=== PATIENT | female | born 1955 | race Caucasian/White ===

== ENCOUNTER 2023-01-10 20:53 | Outpatient (CLI) | payer MEDICARE, OTHER, SELFPAY | END 2023-01-10 20:54 | disposition home or self-care (01) | LOC: AMB 01-21 04:31 | PROVIDERS: Visit Provider Family Medicine | DX: R55 Syncope and collapse (principal) | CPT/HCPCS: A0425; A0427 ==

== ENCOUNTER 2023-04-04 17:40 | Outpatient (CLI) | payer MEDICARE, OTHER, SELFPAY | END 2023-04-04 17:41 | disposition home or self-care (01) | LOC: AMB 04-08 09:59 | PROVIDERS: Visit Provider Family Medicine | DX: R07.89 Other chest pain (principal) | CPT/HCPCS: A0425; A0427 ==

== ENCOUNTER 2023-04-04 17:53 | Emergency (ER) | payer MEDICARE, OTHER, SELFPAY ==
[2023-04-04 18:00] VITALS: BP 139/81; PULSE 106; RESP 22; TEMP 37.3; O2SAT 94; BMI 28.0
--- NOTE | 2023-04-04 18:18 | ED.CHESTPAIN ---
HPI - Chest Pain General Time Seen by Provider: 18:18 Date Seen: 04/04/23 Chief Complaint: Chest Pain Stated Complaint: chest pain/discomfort Time Seen by Provider: 04/04/23 18:04 Source: patient, family, RN notes reviewed and old records reviewed Mode of arrival: ambulatory Limitations: no limitations History of Present Illness HPI narrative: 68-year-old female who presents today with chest pain. This is been going on today. She also has nausea without vomiting. Has a cough, also complains of some chest pain. Denies lower extremity swelling. She comes from a correction. Denies diarrhea, urinary symptoms, abdominal pain. Related Data Home Medications Medication Instructions Recorded Confirmed acetaminophen 500 mg tablet (Pain 1,000 mg PO BID 01/10/23 01/10/23 Reliever Extra Strength (acetaminophen)) clozapine 100 mg tablet 600 mg PO HS 01/10/23 01/10/23 lurasidone 40 mg tablet 40 mg PO DAILY 01/10/23 01/10/23 omeprazole 20 mg capsule,delayed 20 mg PO BID 01/10/23 01/10/23 release oxybutynin chloride 10 mg 10 mg PO DAILY 01/10/23 01/10/23 tablet,extended release 24 hr sennosides 8.6 mg tablet (senna) 17.2 mg PO BID 01/10/23 01/10/23 albuterol sulfate 90 mcg/actuation 2 puff inhalation Q4H PRN 01/11/23 01/11/23 aerosol inhaler (Ventolin HFA) calcium carbonate 200 mg calcium 200 mg PO QID PRN 01/11/23 01/11/23 (500 mg) chewable tablet (Gil-Gest Antacid) cetirizine 10 mg tablet 10 mg PO DAILY 01/11/23 01/11/23 clonazepam 1 mg tablet 1 mg PO HS 01/11/23 01/11/23 diphenhydramine HCl 25 mg capsule 25 mg PO HS 01/11/23 01/11/23 (Banophen) docusate sodium 100 mg capsule 100 mg PO BID 01/11/23 01/11/23 famotidine 20 mg tablet 20 mg PO BID 01/11/23 01/11/23 fluticasone furoate 100 1 ea inhalation DAILY 01/11/23 01/11/23 mcg-vilanterol 25 mcg/dose inhalation powder (Breo Ellipta) Previous Rx's Medication Instructions Recorded doxycycline hyclate 100 mg capsule 100 mg PO BID #10 caps 04/04/23 prednisone 20 mg tablet 20 mg PO DAILY #5 tabs 04/04/23 Allergies Allergy/AdvReac Type Severity Reaction Status Date / Time No Known Drug Allergies Allergy Verified 01/10/23 22:30 [facility] Medical History (Updated 04/04/23 @ 21:48 by Antony Page MD) Gastroesophageal reflux disease ?K21.9 - Gastro-esophageal reflux disease without esophagitis (ICD-10) Schizoaffective disorder ?F25.9 - Schizoaffective disorder, unspecified (ICD-10) Social History (Updated 01/11/23 @ 01:02 by Thong Cardoso MD) Narrative: 67-year-old female resident of [facility]. Unable to give any significant history. Prior to moving to [place] about 12 years ago she was living with her parents but having significant psychiatric problems. Was placed in [facility]. Smoke cigarettes. Probably had a history ethanol abuse at some point in the past. Smoking Status: Current every day smoker How often do you have a drink containing alcohol: never AUDIT-C Alcohol total score: 0 Non-prescribed substance use: denies use Exam Narrative Exam Narrative: General: Well-developed and well-nourished, no acute distress Head: Atraumatic and normocephalic Eyes: Pupils are equal reactive, extraocular motions intact, conjunctiva clear ENT: External nose and ears are normal, posterior pharynx without erythema or exudate Neck: No midline cervical tenderness, full spontaneous range of motion the neck, trachea midline, no adenopathy Heart: Tachycardic but regular Lungs: Trace expiratory wheezes throughout Abdomen: Soft, nontender, nondistended with active bowel sounds Musculoskeletal: No tenderness, deformity, or edema Neurologic: Awake, alert, and oriented x3, no gross focal neurologic deficits, cranial nerves intact as tested Psych: Mood and affect are appropriate Skin: No rashes Const Vital Signs, click to edit/add: Vital Signs - 24 hr 04/04/23 18:00 04/04/23 20:20 04/04/23 20:32 Temperature 99.1 F Pulse Rate 103 H 104 H Pulse Rate [Pulse Oximeter] 106 H Respiratory Rate 22 18 18 Blood Pressure 146/76 H 136/69 Blood Pressure [Right Upper Arm] 139/81 Pulse Oximetry 94 95 95 Oxygen Delivery Method Room Air 04/04/23 21:01 04/04/23 21:07 04/04/23 21:32 Temperature 99.1 F Pulse Rate 102 H 103 H Pulse Rate [Pulse Oximeter] Respiratory Rate 18 18 Blood Pressure 144/71 H 128/71 Blood Pressure [Right Upper Arm] Pulse Oximetry 96 96 Oxygen Delivery Method Course Course Hospital Course: Patient seen examined, prior records reviewed. Patient presents today with left-sided chest pain. On exam she is tachycardic with some expiratory wheezes, chest wall tenderness which reproduces symptoms. No lower extremity edema, mild diffuse abdominal tenderness with no focal tenderness. Labs, x-ray, fluids, nebulizer treatment are ordered. Reevaluation(s) Time of Reevaluation #1: 19:41 Reevaluation #1: Labs independently interpreted by me with leukocytosis, normal hemoglobin. D-dimer is negative, basic panel with hyponatremia, magnesium is normal, BNP is normal. Chest x-ray independently interpreted by me is negative. Given leukocytosis and chest pain, CT scan of the chest is ordered, patient is also complaining of some abdominal pain so extent to the abdomen pelvis given unreliable historian and leukocytosis. Time of Reevaluation #2: 20:35 Reevaluation #2: Labs independently interpreted by me with normal troponin. CT scan of the chest independently interpreted by me with some hazy ground-glass opacities, some atelectasis, no definite acute infiltrate. CT scan of the abdomen pelvis independently interpreted by me demonstrates bladder enlargement with bilateral hydronephrosis consistent with chronic outlet obstruction. Urinalysis today is not consistent with infection. Given wheezing on exam, leukocytosis, tachycardia, in findings on CT scan, patient was started on antibiotics dark for possible community-acquired pneumonia. Time of Reevaluation #3: 21:47 Reevaluation #3: Patient recheck, patient is stable for discharge with outpatient follow-up. Vital Signs Vital signs: Initial Vital Signs Temperature 99.1 F 04/04/23 18:00 Temperature Source Temporal Artery Scan 04/04/23 18:00 Pulse Rate 106 H 04/04/23 18:00 Pulse Rhythm Regular 04/04/23 18:00 Respiratory Rate 22 04/04/23 18:00 Blood Pressure 139/81 04/04/23 18:00 Blood Pressure Mean 100 04/04/23 18:00 Blood Pressure Position Semi-Fowlers 04/04/23 18:00 Pulse Oximetry 94 04/04/23 18:00 Oxygen Delivery Method Room Air 04/04/23 18:00 Vital Signs Temperature 99.1 F 04/04/23 18:00 Pulse Rate 106 H 04/04/23 18:00 Respiratory Rate 22 04/04/23 18:00 Blood Pressure 139/81 04/04/23 18:00 Pulse Oximetry 94 04/04/23 18:00 Oxygen Delivery Method Room Air 04/04/23 18:00 Temperature 99.1 F 04/04/23 21:07 Pulse Rate 103 H 04/04/23 21:32 Respiratory Rate 18 04/04/23 21:32 Blood Pressure 128/71 04/04/23 21:32 Pulse Oximetry 96 04/04/23 21:32 Oxygen Delivery Method Room Air 04/04/23 18:00 MDM - Chest Pain Lab Data Labs: Lab Results 04/04/23 04/04/23 Range/Units 19:00 19:30 WBC 16.05 H (4.50-11.00) K/uL RBC 4.38 (4.00-5.20) m/uL Hgb 11.9 L (12.0-16.0) gm/dL Hct 36.3 (33.0-51.0) % MCV 83 (80-100) fL MCH 27 (26-34) pg MCHC 33 (32-36) gm/dL RDW Coeff of Jennifer 16.6 H (11.5-15.5) % Plt Count 418 (140-440) K/uL Neut % (Auto) 76.4 H (42.0-72.0) % Lymph % (Auto) 14.1 L (20-44) % [place]duff[place] % (Auto) 9.2 (0.0-11.0) % Eos % (Auto) 0.1 (0.0-7.0) % Baso % (Auto) 0.1 (0.0-3.0) % Neut # (Auto) 12.30 H (1.7-7.0) K/uL Lymph # (Auto) 2.30 (0.90-2.90) K/uL Mcduffie # (Auto) 1.50 H (0.00-0.90) K/UL Eos # (Auto) 0.00 (0.00-0.50) K/uL Baso # (Auto) 0.00 (0.00-0.30) K/uL Abs Immat Gran (auto) 0.00 (0.00-0.30) K/uL Imm/Tot Granulo (auto) 0.1 % D-Dimer Quant (PE/DVT) 0.42 (0.00-0.50) ug/ml Sodium 125 L (135-149) mmol/L Potassium 3.8 (3.6-5.1) mmol/L Chloride 93 L (96-114) mmol/L Carbon Dioxide 19 L (20-32) mmol/L BUN 7 (7-30) mg/dL Creatinine 0.5 (0.5-1.5) mg/dL Estimated Creat Clear 49.12 Estimated GFR 103 ml/min Glucose 115 (60-115) mg/dL Calcium 9.1 (8.4-10.6) mg/dL Magnesium 1.6 (1.5-2.6) mg/dL NT-Pro-B Natriuret Pep 28 pg/mL Urine Color Yellow (Yellow) Urine Appearance Clear (Clear) Urine pH 7.0 (5.0-8.5) Ur Specific [place] 1.010 (1.000-1.030) Urine Protein Negative (Negative) Urine Glucose (UA) Negative (Negative) Urine Ketones Negative (Negative) Urine Blood Negative (Negative) Urine Nitrite Negative (Negative) Urine Bilirubin Negative (Negative) Urine Urobilinogen 0.2 (0.2-1.0) Ur Leukocyte Esterase Negative (Negative) Urine RBC 0-2 (0-2) Urine WBC 0-2 (0-5) Ur Squamous Epith Cells None (None-Few) Urine Bacteria None (None) SARS-CoV-2 (PCR) Negative SARS-CoV-2 (Negative) Influenza Type A (PCR) Negative PCR FLU A (Negative) Influenza Type B (PCR) Negative PCR FLU B (Negative) POC Troponin I 0.00 L (0.01-0.04) ng/ml ECG Data Attestation: I personally reviewed and interpreted this ECG as follows: ECG interpretation date: 04/04/23 ECG interpretation time: 18:22 Prior ECG tracings: not available for review Interpretation: Performed at 452 p.m. demonstrates sinus tachycardia rate 108, no acute ischemic changes, normal intervals, normal axis, MT 120, QTC 431. No prior for comparison. Discharge Plan Discharge Clinical Impression: Acute bronchitis, Acute hyponatremia Patient Disposition: Home, Self-Care Condition: Stable Instructions: Acute Bronchitis (ED) Additional Instructions: Take antibiotics as prescribed Use inhaler as prescribed Follow-up with your primary care doctor this week Discharge Diet: Regular Prescriptions: New doxycycline hyclate 100 mg capsule 100 mg PO BID Qty: 10 0RF prednisone 20 mg tablet 20 mg PO DAILY Qty: 5 0RF No Action clozapine 100 mg tablet 600 mg PO HS acetaminophen [Pain Reliever ES(acetaminophn)] 500 mg tablet 1,000 mg PO BID sennosides [senna] 8.6 mg tablet 17.2 mg PO BID oxybutynin chloride 10 mg tablet extended release 24hr 10 mg PO DAILY omeprazole 20 mg capsule,delayed release(DR/EC) 20 mg PO BID lurasidone 40 mg tablet 40 mg PO DAILY albuterol sulfate [Ventolin HFA] 90 mcg/actuation HFA aerosol inhaler 2 puff inhalation Q4H PRN calcium carbonate [Gil-Gest Antacid] 200 mg calcium (500 mg) tablet,chewable 200 mg PO QID PRN Patient Comments: HEARTBURN cetirizine 10 mg tablet 10 mg PO DAILY clonazepam 1 mg tablet 1 mg PO HS diphenhydramine HCl [Banophen] 25 mg capsule 25 mg PO HS famotidine 20 mg tablet 20 mg PO BID docusate sodium 100 mg capsule 100 mg PO BID fluticasone furoate-vilanterol [Breo Ellipta] 100-25 mcg/dose blister with device 1 ea inhalation DAILY Follow Up/Referrals: Provider,Not a Local [Primary Care Provider] - Stand Alone Forms: [employer] Info Instructions
--- NOTE | 2023-04-04 18:20 | CRLHL7_ITS ---
For Patients: As a result of the Century Cures Act, medical imaging exams and procedure reports are released immediately into your electronic medical record. You may view this report before your referring provider. If you have questions, please contact your health care provider. INDICATION: Chest pain TECHNIQUE: Chest 1 view COMPARISON: 01/10/2023 FINDINGS: Cardiovascular and mediastinum: Heart size and vasculature are normal in caliber and appearance. Lungs and pleural spaces: Lungs are clear. No sign of infiltrate or mass. No sign of pleural effusion. No pneumothorax. Bones and soft tissues: Degenerative changes noted. IMPRESSION: No acute findings. Dictated by Zachary August MD @ 04/04/2023 7:03:18 PM (Electronically Signed)
[2023-04-04 19:14] LABS: Basophils Percent Auto 0.1 % (0.0-3.0); Eosinophils Percent Auto 0.1 % (0.0-7.0); Hematocrit 36.3 % (33.0-51.0); Hemoglobin* 11.9 gm/dL (12.0-16.0); Immature Granulocytes Pct Auto 0.1 %; Lymphocytes Percent Auto 14.1 % (20-44); Mean Corpuscular HGB Conc 33 gm/dL (32-36); Mean Corpuscular Hemoglobin 27 pg (26-34); Mean Corpuscular Volume 83 fL (80-100); Monocytes Percent Auto 9.2 % (0.0-11.0); Neutrophils Percent Auto 76.4 % (42.0-72.0); Platelet Count* 418 K/uL (140-440); RDW Coefficient of Variation % 16.6 % (11.5-15.5); Red Blood Count 4.38 m/uL (4.00-5.20); White Blood Count* 16.05 K/uL (4.50-11.00)
[2023-04-04 19:15] LABS: Slide Review Reflex No
[2023-04-04 19:25] LABS: Chloride* 93 mmol/L (96-114); Potassium* 3.8 mmol/L (3.6-5.1); Sodium* 125 mmol/L (135-149)
[2023-04-04 19:28] LABS: Carbon Dioxide* 19 mmol/L (20-32); Creatinine* 0.5 mg/dL (0.5-1.5); Est. Creatinine Clearance* 49.12; Estimated Glomerular Filt Rate 103 ml/min
[2023-04-04 19:29] LABS: Blood Urea Nitrogen* 7 mg/dL (7-30); Calcium* 9.1 mg/dL (8.4-10.6); Glucose* 115 mg/dL (60-115); Magnesium* 1.6 mg/dL (1.5-2.6)
[2023-04-04] MEDS: IPRAT-ALBUT 0.5-2.5 MG/3 ML NEB 1 NEB IH (19:29)
[2023-04-04] MEDS: 0.9 % SODIUM CHLORIDE 1000 ml 1,000 ML IV (19:29)
[2023-04-04] MEDS: ACETAMINOPHEN 500 MG TABLET 1000 MG PO (19:29)
[2023-04-04 19:30] LABS: D Dimer Quantitative* 0.42 ug/ml (0.00-0.50)
[2023-04-04 19:39] LABS: NT Pro B Type NatriureticPept* 28 pg/mL
--- NOTE | 2023-04-04 19:44 | CRLHL7_ITS ---
For Patients: As a result of the Century Cures Act, medical imaging exams and procedure reports are released immediately into your electronic medical record. You may view this report before your referring provider. If you have questions, please contact your health care provider. INDICATION: Thoraco abdominal pain, tachycardia, leukocytosis TECHNIQUE: CT chest, abdomen and pelvis acquired with 82 cc Isovue 370 IV contrast. COMPARISON: None FINDINGS: Chest: Cardiovascular structures: Heart size is normal. Thoracic aorta and main pulmonary artery are normal in caliber. Mediastinum and dimas: No mass or adenopathy. Small hiatal hernia. Lungs: Clear. Pleura and pericardium: No effusions. Chest wall and axilla: No mass or adenopathy. Bones: Unremarkable for age. Abdomen and Pelvis: Liver: Unremarkable. Spleen: Unremarkable. Pancreas: 9 mm cyst in the pancreatic tail. Gallbladder and bile ducts: Unremarkable. Adrenal glands: Unremarkable. Kidneys: Mild pelvicaliectasis likely due to significant distention of the urinary bladder. GI tract: Unremarkable. Appendix is normal. Vascular structures: Mild aortoiliac calcifications. Lymph nodes: Unremarkable. Miscellaneous: Unremarkable. No free air or significant free fluid. Pelvic Organs: Distended urinary bladder. Bones: Unremarkable for age. IMPRESSION: No etiology seen to explain leukocytosis. No acute abnormality within the chest, abdomen, or pelvis. 9 mm pancreatic cyst. Recommend follow-up pancreatic CT or MRI in 2 years. Distended urinary bladder causes mild bilateral pelvicaliectasis. Please note that all CT scans at this facility use dose modulation, iterative reconstruction, and/or weight-based dosing when appropriate to reduce radiation dose to as low as reasonably achievable. Dictated by Suma Guevara MD @ 04/04/2023 9:40:19 PM (Electronically Signed)
[2023-04-04 19:50] LABS: Appearance Urine Clear (Clear); Bilirubin Urine Negative (Negative); Blood Urine Negative (Negative); Color Urine Yellow (Yellow); Glucose Urine Negative (Negative); Ketones Urine Negative (Negative); Leukocyte Esterase Urine Negative (Negative); Nitrite Urine Negative (Negative); Protein Urine Negative (Negative); Urobilinogen Urine 0.2 (0.2-1.0)
[2023-04-04 19:53] LABS: RBC Urine 0-2 (0-2); WBC Urine 0-2 (0-5)
[2023-04-04 20:20] VITALS: BP 146/76; PULSE 103; RESP 18; O2SAT 95
[2023-04-04 20:21] LABS: PCR FLU A Negative PCR FLU A (Negative); PCR FLU B Negative PCR FLU B (Negative)
[2023-04-04 20:24] LABS: SARS PCR* Negative SARS-CoV-2 (Negative)
[2023-04-04 20:32] VITALS: BP 136/69; PULSE 104; RESP 18; O2SAT 95
[2023-04-04 21:01] VITALS: BP 144/71; PULSE 102; RESP 18; O2SAT 96
[2023-04-04 21:07] VITALS: TEMP 37.3
[2023-04-04 21:32] VITALS: BP 128/71; PULSE 103; RESP 18; O2SAT 96
[2023-04-04] MEDS: dexAMETHasone 10 MG/ML inj IVP (21:59)
[2023-04-04] MEDS: DOXYCYCLINE HYCLATE 100 MG PO (21:59)
[2023-04-04] MEDS: cefTRIAXone 1 GM in 0.9 % SODIUM CHLORIDE Mini-bag 100 ML IVPB (22:02)
--- NOTE | 2023-04-04 22:13 | PC.NURSE ---
update given to Jessica boyd RN
--- NOTE | 2023-04-04 22:34 | PC.NURSE ---
DC with [facility] staff, all belongings sent with patient/staff. Jessica called and given update on DC instructions with no further questions
== END 2023-04-04 22:33 | disposition home or self-care (01) ==
PROVIDERS: Emergency Provider Family Medicine
DX: J20.9 Acute bronchitis, unspecified (principal); E87.1 Hypo-osmolality and hyponatremia
CPT/HCPCS: 36415; 71045; 71260; 74177; 80048; 81001; 83735; 83880; 84484; 85025; 85379; 87631; 93005; 94640; 96365; 96375; 99284; 99285; A9270; J0696; J1100; J7030; Q9967

== ENCOUNTER 2023-05-05 22:03 | Outpatient (CLI) | payer MEDICARE, OTHER, SELFPAY | END 2023-05-05 22:04 | disposition home or self-care (01) | LOC: AMB 05-13 13:00 | PROVIDERS: Visit Provider Family Medicine | DX: R07.89 Other chest pain (principal); R00.2 Palpitations | CPT/HCPCS: A0425; A0427 ==

== ENCOUNTER 2023-05-05 22:29 | Emergency (ER) | payer MEDICARE, OTHER, SELFPAY ==
[2023-05-05] VITALS (8 sets, daily range): BP systolic 121–129; BP diastolic 56–76; PULSE 99–110; RESP 16–20; TEMP 36.8; O2SAT 90–96; BMI 27.5
--- NOTE | 2023-05-05 23:05 | ED_ITS ---
HPI - General Adult General Chief complaint: Cough Stated complaint: chest pain Time Seen by Provider: 05/05/23 22:39 History of Present Illness HPI narrative: CC: Cough, Chest Tightness pt. with c/o cough, chest tightness for the last day. denies fevers, n/v, diarrhea. pt. thinks she has bronchitits. was given 4 baby aspirin, 1 nitro. 68-year-old woman presenting to the emergency department with complaint of some heart fibrillation that felt like pressure then moved into left arm and right arm. She describes being here before with a diagnosis of bronchitis and hypokalemia and she would like some antibiotics and IV. She does arrive via EMS was already placed an IV. She does smoke. No fever. No vomiting. No abdominal pain. Related Data Home Medications Medication Instructions Recorded Confirmed acetaminophen 500 mg tablet (Pain 1,000 mg PO BID 01/10/23 05/05/23 Reliever Extra Strength (acetaminophen)) clozapine 100 mg tablet 600 mg PO HS 01/10/23 05/05/23 lurasidone 40 mg tablet 40 mg PO DAILY 01/10/23 05/05/23 omeprazole 20 mg capsule,delayed 20 mg PO BID 01/10/23 05/05/23 release oxybutynin chloride 10 mg 10 mg PO DAILY 01/10/23 05/05/23 tablet,extended release 24 hr sennosides 8.6 mg tablet (senna) 17.2 mg PO BID 01/10/23 05/05/23 albuterol sulfate 90 mcg/actuation 2 puff inhalation Q4H PRN 01/11/23 05/05/23 aerosol inhaler (Ventolin HFA) calcium carbonate 200 mg calcium 200 mg PO QID PRN 01/11/23 05/05/23 (500 mg) chewable tablet (Gil-Gest Antacid) cetirizine 10 mg tablet 10 mg PO DAILY 01/11/23 05/05/23 clonazepam 1 mg tablet 1 mg PO HS 01/11/23 05/05/23 diphenhydramine HCl 25 mg capsule 25 mg PO HS 01/11/23 05/05/23 (Banophen) docusate sodium 100 mg capsule 100 mg PO BID 01/11/23 05/05/23 famotidine 20 mg tablet 20 mg PO BID 01/11/23 05/05/23 fluticasone furoate 100 1 ea inhalation DAILY 01/11/23 05/05/23 mcg-vilanterol 25 mcg/dose inhalation powder (Breo Ellipta) Previous Rx's Medication Instructions Recorded doxycycline hyclate 100 mg capsule 100 mg PO BID #10 caps 04/04/23 Allergies Allergy/AdvReac Type Severity Reaction Status Date / Time No Known Drug Allergies Allergy Verified 05/05/23 23:09 Review of Systems Status of ROS: Reports: 6 or more systems reviewed and unremarkable except as noted in History and below [facility] Medical History Gastroesophageal reflux disease ?K21.9 - Gastro-esophageal reflux disease without esophagitis (ICD-10) Schizoaffective disorder ?F25.9 - Schizoaffective disorder, unspecified (ICD-10) Social History Narrative: 67-year-old female resident of [facility]. Unable to give any significant history. Prior to moving to [place] about 12 years ago she was living with her parents but having significant psychiatric problems. Was placed in [facility]. Smoke cigarettes. Probably had a history ethanol abuse at some point in the past. Smoking Status: Current every day smoker How often do you have a drink containing alcohol: never How often do you have six or more drinks on one occasion: Never AUDIT-C Alcohol total score: 0 Non-prescribed substance use: denies use Exam Narrative: Exam Narrative: Difficult to understand with articulation. Mouth is terribly dry though I gave her some water this does not improve things a whole lot. Oropharynx with upper denture plate. Cranial nerves 2-12 look to be intact. She is breathing easily. Lungs with diminished breath sounds generally. She is in no respiratory distress. There is a clearing wheeze or squeak in the left upper lung. Heart is with a an elevated rate in a regular rhythm. Distant. Abdomen is soft and nontender without masses appreciable. Lower extremities are without edema. She is well-perfused. Const: Vital Signs, click to edit/add: Vital Signs - 24 hr 05/05/23 22:39 05/05/23 22:40 05/05/23 22:45 Temperature Pulse Rate 110 H 109 H 107 H Pulse Rate [Right Pulse Oximeter] Respiratory Rate Blood Pressure 129/60 Blood Pressure [Ri ght Upper Arm] Pulse Oximetry 92 91 90 Oxygen Delivery Me thod 05/05/23 23:02 05/05/23 23:02 05/05/23 23:15 Temperature 98.2 F Pulse Rate 99 Pulse Rate [Right Pulse Oximeter] 99 Respiratory Rate 20 16 Blood Pressure 124/56 L Blood Pressure [Ri ght Upper Arm] 124/76 Pulse Oximetry 94 91 94 Oxygen Delivery Me thod Room Air 05/05/23 23:15 Temperature Pulse Rate 103 H Pulse Rate [Right Pulse Oximeter] Respiratory Rate Blood Pressure Blood Pressure [Ri ght Upper Arm] Pulse Oximetry 94 Oxygen Delivery Me thod Documenting provider has reviewed patient's vital signs: yes Course Vital Signs Vital signs: Initial Vital Signs Pulse Rate 110 H 05/05/23 22:39 Blood Pressure 129/60 05/05/23 22:39 Blood Pressure Mean 83 05/05/23 22:39 Pulse Oximetry 92 05/05/23 22:39 Vital Signs Pulse Rate 110 H 05/05/23 22:39 Blood Pressure 129/60 05/05/23 22:39 Pulse Oximetry 92 05/05/23 22:39 Temperature 98.2 F 05/05/23 23:02 Pulse Rate 103 H 05/05/23 23:15 Respiratory Rate 16 05/05/23 23:02 Blood Pressure 124/76 05/05/23 23:02 Pulse Oximetry 94 05/05/23 23:15 Oxygen Delivery Method Room Air 05/05/23 23:02 Medical Decision Making MDM Narrative Medical decision making narrative: Certainly can monitor for evidence of arrhythmia. Is concerned about a number o f things. I think would be reasonable to do chest x-ray and check chemistries given prior presentation. With medications that she is taking would check a CBC and liver panel as well. When of care troponin is negative. I have reviewed the EKG as well Shortly after initiating IV fluids as sodium is little bit low at 131, calls me back wondering what the plan is and per nursing anticipating antibiotics in the IV. When I go to discuss with her, says that she would like some IV steroids. Endorses increased cough recently. And also mentions attacks of reflux and constipation and diarrhea. Looks like does take omeprazole. Ask her about albuterol. Review of records shows a rescue inhaler as well as controller medication in the form of Breo Ellipta Review of records shows recurrent hyponatremia, much lower than today. I discussed continuing the current bag of IV fluids and the head in order dose of oral prednisone. We are in agreement I understand. I depart to prepare discharge and after giving prednisone, nursing is called and she is indicating does not wish to complete the L of IV normal saline. See patient discharge plan. Lab Data Lab results reviewed: Yes I reviewed the patient's lab results Labs: Lab Results 05/05/23 05/05/23 05/05/23 Range/Units 22:45 23:00 23:16 WBC 11.96 H (4.50-11.00) K/uL RBC 4.46 (4.00-5.20) m/uL Hgb 11.8 L (12.0-16.0) gm/dL Hct 37.2 (33.0-51.0) % MCV 83 (80-100) fL MCH 27 (26-34) pg MCHC 32 (32-36) gm/dL RDW Coeff of Jennifer 17.1 H (11.5-15.5) % Plt Count 462 H (140-440) K/uL Neut % (Auto) 67.6 (42.0-72.0) % Lymph % (Auto) 23.6 (20-44) % [place]lee % (Auto) 8.3 (0.0-11.0) % Eos % (Auto) 0.0 (0.0-7.0) % Baso % (Auto) 0.3 (0.0-3.0) % Neut # (Auto) 8.10 H (1.7-7.0) K/uL Lymph # (Auto) 2.80 (0.90-2.90) K/uL Greenlee # (Auto) 1.00 H (0.00-0.90) K/UL Eos # (Auto) 0.00 (0.00-0.50) K/uL Baso # (Auto) 0.00 (0.00-0.30) K/uL Abs Immat Gran (auto) 0.00 (0.00-0.30) K/uL Imm/Tot Granulo (auto) 0.2 % Sodium 131 L (135-149) mmol/L Potassium 3.3 L (3.6-5.1) mmol/L Chloride 101 (96-114) mmol/L Carbon Dioxide 22 (20-32) mmol/L Anion Gap 8 (7-15) mEq/L BUN 9 (7-30) mg/dL Creatinine 0.6 (0.5-1.5) mg/dL Estimated Creat Clear 49.12 Estimated GFR 98 ml/min Glucose 193 H (60-115) mg/dL Calcium 9.4 (8.4-10.6) mg/dL Magnesium 1.6 (1.5-2.6) mg/dL Troponin I < 0.01 L (0.01-0.04) ng/mL C-Reactive Protein < 0.5 L (0.5-1.0) mg/dL NT-Pro-B Natriuret Pep 21 pg/mL SARS-CoV-2 (PCR) Negative SARS-CoV-2 (Negative) POC Troponin I 0.00 L (0.01-0.04) ng/ml ECG Data Attestation: I personally reviewed and interpreted this ECG as follows: (Sinus tachycardia without acute ischemic changes. Subtle sloping? of the ST segment) Discharge Plan Discharge Clinical Impression: Cough, Hyponatremia Patient Disposition: Home w/ Parent or Adult Condition: Stable Additional Instructions: Consider rechecking your labs in a couple of weeks. Have prescribed the steroid prednisone from [facility] as discussed. Would be good if you could quit smoking. Prescriptions: No Action clozapine 100 mg tablet 600 mg PO HS acetaminophen [Pain Reliever ES(acetaminophn)] 500 mg tablet 1,000 mg PO BID sennosides [senna] 8.6 mg tablet 17.2 mg PO BID oxybutynin chloride 10 mg tablet extended release 24hr 10 mg PO DAILY omeprazole 20 mg capsule,delayed release(DR/EC) 20 mg PO BID lurasidone 40 mg tablet 40 mg PO DAILY albuterol sulfate [Ventolin HFA] 90 mcg/actuation HFA aerosol inhaler 2 puff inhalation Q4H PRN calcium carbonate [Gil-Gest Antacid] 200 mg calcium (500 mg) tablet,chewable 200 mg PO QID PRN Patient Comments: HEARTBURN cetirizine 10 mg tablet 10 mg PO DAILY clonazepam 1 mg tablet 1 mg PO HS diphenhydramine HCl [Banophen] 25 mg capsule 25 mg PO HS famotidine 20 mg tablet 20 mg PO BID docusate sodium 100 mg capsule 100 mg PO BID fluticasone furoate-vilanterol [Breo Ellipta] 100-25 mcg/dose blister with device 1 ea inhalation DAILY doxycycline hyclate 100 mg capsule 100 mg PO BID Qty: 10 0RF Follow Up/Referrals: Provider,Not a Local [Primary Care Provider] - Stand Alone Forms: [employer] Info Instructions
--- NOTE | 2023-05-05 23:15 | CRLHL7_ITS ---
For Patients: As a result of the Cures Act, medical imaging exams and procedure reports are released immediately into your electronic medical record. You may view this report before your referring provider. If you have questions, please contact your health care provider. INDICATION: Upper chest pain, wheezing TECHNIQUE: Chest radiograph 1 view COMPARISON: 04/04/2023 FINDINGS: Mediastinum: The mediastinum is normal in appearance. The heart silhouette is normal in size and morphology. Lung: Both lungs are unremarkable in appearance. No sign of pleural effusion seen. No pneumothorax is identified. Bone and Soft tissue: Unremarkable for age. IMPRESSION: 1. No acute cardiopulmonary disease is seen. Dictated by: Edward Gupta MD @ 05/05/2023 23:53:53 (Electronically Signed)
[2023-05-05 23:25] LABS: Basophils Percent Auto 0.3 % (0.0-3.0); Hematocrit 37.2 % (33.0-51.0); Hemoglobin* 11.8 gm/dL (12.0-16.0); Immature Granulocytes Pct Auto 0.2 %; Lymphocytes Percent Auto 23.6 % (20-44); Mean Corpuscular HGB Conc 32 gm/dL (32-36); Mean Corpuscular Hemoglobin 27 pg (26-34); Mean Corpuscular Volume 83 fL (80-100); Monocytes Percent Auto 8.3 % (0.0-11.0); Neutrophils Percent Auto 67.6 % (42.0-72.0); Platelet Count* 462 K/uL (140-440); RDW Coefficient of Variation % 17.1 % (11.5-15.5); Red Blood Count 4.46 m/uL (4.00-5.20); White Blood Count* 11.96 K/uL (4.50-11.00)
[2023-05-05 23:30] LABS: Slide Review Reflex No
[2023-05-05 23:49] LABS: Chloride* 101 mmol/L (96-114)
[2023-05-05 23:50] LABS: Potassium* 3.3 mmol/L (3.6-5.1); Sodium* 131 mmol/L (135-149)
[2023-05-05 23:52] LABS: Creatinine* 0.6 mg/dL (0.5-1.5); Est. Creatinine Clearance* 49.12; Estimated Glomerular Filt Rate 98 ml/min
[2023-05-05 23:53] LABS: Anion Gap 8 mEq/L (7-15); Blood Urea Nitrogen* 9 mg/dL (7-30); Carbon Dioxide* 22 mmol/L (20-32); Glucose* 193 mg/dL (60-115)
[2023-05-05 23:54] LABS: Calcium* 9.4 mg/dL (8.4-10.6); Magnesium* 1.6 mg/dL (1.5-2.6)
[2023-05-05 23:59] LABS: C Reactive Protein* < 0.5 mg/dL (0.5-1.0)
[2023-05-06] VITALS (7 sets, daily range): BP systolic 114–123; BP diastolic 65–66; PULSE 94–101; O2SAT 96–99
[2023-05-06 00:05] LABS: NT Pro B Type NatriureticPept* 21 pg/mL; Troponin I* < 0.01 ng/mL (0.01-0.04)
[2023-05-06 00:05] LABS: SARS PCR* Negative SARS-CoV-2 (Negative)
[2023-05-06] MEDS: 0.9 % SODIUM CHLORIDE 1000 ml 1,000 ML 2000 ML IV (00:15)
== END 2023-05-06 01:05 | disposition home or self-care (01) ==
PROVIDERS: Emergency Provider Family Medicine
DX: R05.9 Cough, unspecified (principal); E87.1 Hypo-osmolality and hyponatremia
CPT/HCPCS: 36415; 71045; 80048; 83735; 83880; 84484; 85025; 86140; 87635; 93005; 94761; 99284; J7030

== ENCOUNTER 2024-02-23 14:39 | Outpatient (REF) | payer MEDICARE, OTHER, SELFPAY ==
[2024-02-23 14:59] LABS: Basophils Percent Auto 0.2 % (0.0-3.0); Hematocrit 37.5 % (33.0-51.0); Hemoglobin* 11.6 gm/dL (12.0-16.0); Immature Granulocytes Pct Auto 0.7 %; Lymphocytes Percent Auto 12.4 % (20-44); Mean Corpuscular HGB Conc 31 gm/dL (32-36); Mean Corpuscular Hemoglobin 26 pg (26-34); Mean Corpuscular Volume 84 fL (80-100); Neutrophils Percent Auto 79.7 % (42.0-72.0); Platelet Count* 399 K/uL (140-440); Red Blood Count 4.45 m/uL (4.00-5.20)
[2024-02-23 15:22] LABS: Slide Review Reflex No
== END 2024-02-23 14:40 | disposition home or self-care (01) ==
LOC: NPINS 14:39
PROVIDERS: Visit Provider Neurological Surgery
DX: F25.9 Schizoaffective disorder, unspecified (principal)
CPT/HCPCS: 85025

== ENCOUNTER 2024-04-04 15:41 | Outpatient (REF) | payer MEDICARE, OTHER, SELFPAY ==
--- OUTSIDE RECORDS SUMMARY | 2024-04-04 15:47 | XMS_ITS | Clinical Summary ---
Author Organization [id number] [facility] Address [place], [place] [address] Care Team Providers Care Hotbed Transfer Operator Name Role Phone Zachary Silverman MD Unavailable [phone] Pcp, No Primary Care Provider Unavailabl e Allergies Active Allergy Reactions Criticality Noted Date Comments House Dust Runny Nose 12/28/2018 Mold Runny Nose 12/28/2018 Penicillins Shortness Of Breath 12/24/2010 Ragweed Pollen Shortness Of Breath Medium 02/09/2018 Medications Medication Sig Dispensed Refills Start Date End Date Status clonazePAM (KLONOPIN) 1 mg tabletIndications:Utility Teller edilia schizoaffective disorder (HC) Take 1 tablet by mouth at bedtime. 0 02/09/2018 Active lurasidone (LATUDA) 40 mg tabletIndications:Utility Teller edilia schizoaffective disorder (HC) Take 1 tablet by mouth with dinner. 0 12/28/2018 Active benztropine (COGENTIN) 0.5 mg tabletIndications:Tard curry dyskinesia Take 1 tablet by mouth 2 times daily. 60 tablet 09/14/2019 Active cloZAPine (CLOZARIL) 200 mg tabletIndications:Utility Teller edilia schizoaffective disorder (HC) 3 tabs oral daily 0 09/14/2019 Active Incontinence Pad, Liner, Disp (POISE PADS) padsIndications:Mixed stress and urge urinary incontinence USE THREE TIMES DAILY NEEDED 90 Each 12 08/13/2020 Active albuterol HFA (Ventolin HFA) 90 mcg/actuation inhalerIndications:Chr onic obstructive pulmonary disease, unspecified COPD type (HC) Inhale 2 Puffs by mouth every 4 hours if needed. 18 g 12 04/21/2021 Active calcium carbonate (Calcium Antacid) 200 mg calcium (500 mg) chewable tabletIndications:Yana roesophageal reflux disease, unspecified whether esophagitis present Chew 1 Tablet (500 mg) by mouth 4 times daily if needed for Heartburn. 120 tablet. 11 04/23/2021 Active budesonide-formoteroL (Symbicort) 160-4.5 mcg/actuation (160-4.5 mcg each actuation) inhalerIndications:TERRITORY SUPERVISOR D with asthma (HC) Inhale 2 Puffs by mouth 2 times daily. 10.2 g 11 07/25/2021 Active fluticasone (50 mcg per actuation) nasal solution (FLONASE)Indications:C hronic sinusitis, unspecified location Inhale 1 [place] to both nostrils 2 times daily. 48 g 3 07/25/2021 Active sennosides (Senna) 8.6 mg tabletIndications:Utility Teller edilia constipation TAKE 3 TABLETS BY MOUTH EVERY MORNING;TAKE 2 TABLETS BY MOUTH EVERY EVENING 450 Tablet 1 12/16/2021 Active polyethylene glycoL (MIRALAX) 17 gram/dose powderIndications:Utility Teller edilia constipation MIX 17 GRAMS IN 4-8 OUNCES OF WATER OR JUICE AND DRINK DAILY 1530 g 02/22/2022 Active docusate (COLACE) 100 mg capsuleIndications:Con stipation, unspecified constipation type TAKE 1 CAPSULE BY MOUTH TWICE DAILY 180 Capsule 03/12/2022 Active omeprazole (PRILOSEC) 20 mg Delayed-Release capsuleIndications:Gas troesophageal reflux disease, unspecified whether esophagitis present TAKE 1 CAPSULE BY MOUTH TWICE DAILY 90 Capsule 03/12/2022 Active oxybutynin XL (DITROPAN XL) 10 mg CR tabletIndications:Blad leroy atonia TAKE 1 TABLET BY MOUTH DAILY 90 Tablet 03/12/2022 Active acetaminophen (Pain Reliever ES,acetaminophn,) 500 mg tabletIndications:Pain TAKE 2 TABLETS BY MOUTH TWICE DAILY FOR PAIN 360 Tablet 2 09/25/2022 Active Banophen 25 mg capsuleIndications:Sea esperanza allergic rhinitis due to pollen TAKE 1 CAPSULE BY MOUTH EVERY NIGHT AT BEDTIME 90 Capsule 09/25/2022 Active cetirizine (ZYRTEC) 10 mg tabletIndications:Seas onal allergic rhinitis due to pollen TAKE 1 TABLET BY MOUTH DAILY 90 Tablet 09/25/2022 Active Active Problems Problem Noted Date Diagnosed Date GERD (gastroesophageal reflux disease) 5 Urinary urgency 10/02/2011 Schizoaffective disorder 12/24/2010 Encounters Date Type Department Care Team Description 02/23/2024 Orders Only [facility] Scanner 1 scan: (1-Ord) [facility], 02/23/2024 from Last 3 Months Immunizations Name Administration Dates Next Due COVID-19 vaccine (Moderna 10 0mcg/0.5mL) PF, MDV 06/23/2021,09/26/2020,08/29/2020 Influenza RIV4 (Age 18+ Years) PRESERV FREE 03/2021 Influenza, IIV3 (Age >=3 years) 06/03/2010,05/01 Influenza, IIV4 08/02/2018,05/04/2018,06/02/2017 Influenza, IIV4 (=>6mos) MDV 05/31/2019 Influenza, Whole Virus 06/03/2010 Pneumococcal conj 13-Valent (Prevnar 13) 021 Td (Age >=7 Years) 04/06/2003 Td, Preservative Free (age >= 7 Years) 6 Tdap 04/06/2003 Social History Tobacco Use Types Packs/Day Years Used Date Smoking Tobacco: Some Days Cigarettes Smokeless Tobacco: Never Tobacco Cessation:Counseling Given: Yes Comments:8 cigs per day Alcohol Use Standard Drinks/Week Comments No 0 (1 standard drink = 0.6 oz pur e alcohol) PHQ-2 Answer Date Recorded PHQ-2 TOTAL SCORE 2 12/31/2020 Social Connections Answer Date Recorded Frequency of Communication with Friends and Fami ly Not on file 08/10/2021 Financial Resource Strain Answer Date R ecorded Difficulty of Paying Living Expenses Not on file 08/10/2021 Difficulty of Paying Living Expenses Not on file 08/10/2021 Sex and Gender Information Value Date Recorded Sex Assigned at Not on file Gender Identity Not on file Sexual Orientation Not on file Obstetrics History Para Term AB IAB SAB Ectopic Multiple Livin g Live Births 0 0 0 0 0 0 0 0 0 0 Last Filed Vital Signs Vital Sign Reading Time Taken Comments Blood Pressure 112/73 07/25/2021 8:09 AM RECYCLING OPERATOR Pulse 97 07/25/2021 8:09 AM RECYCLING OPERATOR Temperature 36.5 ??C (97.7 ??F) 07/25/2021 8:09 AM CS T Respiratory Rate 20 09/14/2019 8:12 AM RECYCLING OPERATOR Oxygen Saturation 97% 07/25/2021 8:09 AM RECYCLING OPERATOR Inhaled Oxygen Concentration - - Weight 89.8 kg (197 lb 14.4 oz) 07/25/2021 8:09 AM RECYCLING OPERATOR Height 160 cm (5' 2.99) 12/31/2020 12: 03 PM CDT Body Mass Index 35.07 12/31/2020 12:03 PM CDT Plan of Treatment Health Maintenance Due Date Last Done Comments Zoster (shingles) series for age 50+ (1 of 2) 2006 Fecal testing non-DNA (FIT,FOBT,iFOBT) for age 45-75 03/30/2017 03/30/2016, 03/29/2015 DEXA/DXA scan for age 65+ 2021 Mammogram for age 45-75 06/05/2021 06/05/20 20, 05/25/2019, 01/07/2017, Additional history exists BMI (ht and wt on same day) for age 18+ 12/31/2021 12/31/2020, 12/10/2020, 02/14/2020, Additional history exists Depression screening for age 12+ 12/31/2021 12/31/2020, 12/11/2020, 12/10/2020, Additional history exists Medicare Wellness for age 65+ 01/01/2022, 01/05/2017, 01/01/2016 Pneumococcal series for age 65+ (2 of 2 - PPSV23 or PCV20) 07/25/2022 07/25/2021 COVID-19 vaccine series ( season) 2023 05/26/2022, 06/23/2021, 09/26/2020, Additional history exists Influenza for age 65+ 04/16/2024 06/23/2021 , 05/31/2019, 08/02/2018, Additional history exists Lipids for age 45-75 12/10/2025 12/10/2020, 09/14/2019, 01/05/2017, Additional history exists Tetanus booster 06/24/2026 06/24/2016, 03/17, 04/06/2003 Tdap Completed 04/06/2003 Hepatitis C screening for ag e 18-79 Completed 12/10/2020 Procedures Procedure Name Priority Date/Time Associated Diagnosis Comments SCAN-LABORATORY REPORT 02/23/2024 12:00 AM CDT ANTI HCV Routine 12/10/2020 11:24 AM CDT Need for hepatitis C screening test LIPID PANEL Routine 12/10/2020 11:24 AM CDT Screening, lipid XR MAMMO BILAT SCREENING Routine 06/05/2020 10:10 AM CDT Visit for screening mammogram OCCULT BLOOD IFOBT STOOL Routine 03/30/2016 2:36 PM CDT Screening for colorectal cancer from Last 3 Months or Most Recently Relevant to Health Maintenance Results * SCAN-LABORATORY REPORT (02/23/2024 12:00 AM CDT) Scanner OTHER * ANTI HCV (12/10/2020 11:24 AM CDT) HEPATITIS C ANTIBODY Non-React curry Non-React curry 12/10/2020 5:44 PM CDT [facility] Comment:Antibodies to HCV no t detected; does not exclude the possibility of exposure to HCV. Blood BLOOD SPECIMEN / Unknown Venipuncture / Unknown 12/10/2020 11:24 AM CDT 12/10/2020 11:24 AM CDT Scottie Ray MD SEND OUTS [facility] [employer] [facility] [address] [place] [address], * (ABNORMAL) LIPID PANEL (12/10/2020 11:24 AM CDT) CHOLESTEROL,TOTAL 227(H) 100 - 199 mg/dL 12/10/2020 5:24 PM CDT [facility] TRIGLYCERIDES 133 <150 mg/dL 12/10/2020 5:24 PM CDT [facility] HDL CHOLESTEROL 81 >40 mg/dL 5:24 PM CDT [facility] NON-HDL CHOLESTEROL 146(H) <145 mg/dl 12/10/2020 5:24 PM CDT [facility] CHOL/HDL RATIO 2.80 <4.50 12/10/2020 5:24 PM CDT [facility] LDL CHOLESTEROL 119 <=130 mg/dL 12/10/2020 5:24 PM CDT [facility] VLDL CHOLESTEROL 27 mg/dL 12/11/19 5:24 PM CDT [facility] PROVIDER ORDERED STATUS RANDOM 12/10/2020 5:24 PM CDT [facility] Blood BLOOD SPECIMEN / Unknown Venipuncture / Unknown 12/10/2020 11:24 AM CDT 12/10/2020 11:24 AM CDT Scottie Ray MD CHEMISTRY [facility] [address] [place] [address], * XR MAMMO BILAT SCREENING (06/05/2020 10:10 AM CDT) Anatomical Region Laterality Modality BREASTS, Breast Left, Breast Right Bilateral Mammography Impressions 06/05/2020 3:34 PM CDT ??There is no radiographic evidence for malignancy. ??Recommend annual mammograms. A lay language report of this examination will be provided to the patient. MAMMOGRAM ASSESSMENT: ??ACR 2 Benign Narrative 06/05/2020 3:34 PM CDT XR MAMMO BILAT SCREENING [[id number]] CLINICAL HISTORY: ??This is an asymptomatic 65 y.o. patient. INDICATION FOR EXAM: Mammogram Screening. TECHNIQUE: CC & MLO views were obtained. ??This digital study was evaluated with the assistance of Computer-Aided Detection. COMPARISON FILMS: Yes 05/25/19 [facility] 01/07/17 [facility] FINDINGS: ??Mammographically, the breast tissue is almost entirely fat. No suspicious masses or microcalcifications. ??Benign appearing mass(es) within left breast. Zachary Ocampo MD MAMMO * OCCULT BLOOD IFOBT STOOL (03/30/2016 2:36 PM CDT) STOOL BLOOD ,IFOBT Negative Negative 03/31/2016 10:13 AM CDT [facility] Stool STOOL SPECIMEN / Unknown Non-Blood / Unknown 03/30/2016 2:36 PM CDT 03/30/2016 2:36 PM CDT Zachary Ocampo MD LABORATORY Performing Organization Address City/State/[facility] Co de Phone Number [facility] [address] [place] [address], from Last 3 Months or Most Recently Relevant to Health Maintenance Advance Directives Documents on File Type Date Recorded Patient Manager Flight Expl anation POLST 08/12/2017 2:13 PM JANINA BLANCO , 08/05/17 Treatment Guidelines 04/27/2013 11:28 AM Naz [facility]G[facility] [employer]USCITATION GUIDELINES, [facility], 04/27/2013 Care Teams Hotbed Transfer Operator Relationship Specialty Start Date End Date Pcp, No . PCP - General 08/26/22 Zachary Silverman MD [facility], [address] [place] [address] Obstetrics and Gynecology 10/02/11
[2024-04-04 16:23] LABS: Basophils Absolute Auto 0.03 K/uL (0.00-0.30); Basophils Percent Auto 0.3 % (0.0-3.0); Hematocrit 37.6 % (33.0-51.0); Hemoglobin* 11.5 gm/dL (12.0-16.0); Immature Granulocytes Abs Auto 0.01 K/uL (0.00-0.30); Immature Granulocytes Pct Auto 0.1 %; Lymphocytes Absolute Auto 2.34 K/uL (0.90-2.90); Lymphocytes Percent Auto 25.4 % (20-44); Mean Corpuscular HGB Conc 31 gm/dL (32-36); Mean Corpuscular Hemoglobin 26 pg (26-34); Mean Corpuscular Volume 84 fL (80-100); Neutrophils Absolute Auto 5.83 K/uL (1.7-7.0); Neutrophils Percent Auto 63.2 % (42.0-72.0); Platelet Count* 440 K/uL (140-440); RDW Coefficient of Variation % 16.3 % (11.5-15.5); Red Blood Count 4.48 m/uL (4.00-5.20); White Blood Count* 9.22 K/uL (4.50-11.00)
[2024-04-04 16:35] LABS: Slide Review Reflex No
== END 2024-04-04 15:42 | disposition home or self-care (01) ==
LOC: NPINS 15:41
PROVIDERS: Neurological Surgery
DX: F20.9 Schizophrenia, unspecified (principal)
CPT/HCPCS: 85025

== ENCOUNTER 2024-11-23 10:36 | Outpatient (CLI) | payer MEDICARE, OTHER, SELFPAY ==
[2024-11-23 11:08] LABS: Basophils Absolute Auto 0.02 K/uL (0.00-0.30); Basophils Percent Auto 0.2 % (0.0-3.0); Hematocrit 44.8 % (33.0-51.0); Hemoglobin* 14.2 gm/dL (12.0-16.0); Immature Granulocytes Abs Auto 0.01 K/uL (0.00-0.30); Immature Granulocytes Pct Auto 0.1 %; Lymphocytes Absolute Auto 2.12 K/uL (0.90-2.90); Mean Corpuscular HGB Conc 32 gm/dL (32-36); Mean Corpuscular Hemoglobin 27 pg (26-34); Mean Corpuscular Volume 86 fL (80-100); Monocytes Percent Auto 7.3 % (0.0-11.0); Neutrophils Absolute Auto 6.79 K/uL (1.7-7.0); Neutrophils Percent Auto 70.4 % (42.0-72.0); Platelet Count* 359 K/uL (140-440); RDW Coefficient of Variation % 20.3 % (11.5-15.5); Red Blood Count 5.22 m/uL (4.00-5.20); White Blood Count* 9.64 K/uL (4.50-11.00)
[2024-11-23 11:10] LABS: Slide Review Reflex No
== END 2024-11-23 10:37 | disposition home or self-care (01) ==
LOC: NPINS 10:38
PROVIDERS: Visit Provider Psychiatry & Neurology Psychiatry
DX: Z79.899 Other long term (current) drug therapy (principal)
CPT/HCPCS: 85025

== ENCOUNTER 2025-01-02 11:06 | Outpatient (CLI) | payer MEDICARE, OTHER, SELFPAY ==
[2025-01-02 12:21] LABS: Basophils Absolute Auto 0.02 K/uL (0.00-0.30); Basophils Percent Auto 0.2 % (0.0-3.0); Hematocrit 45.5 % (33.0-51.0); Hemoglobin* 14.3 gm/dL (12.0-16.0); Immature Granulocytes Abs Auto 0.02 K/uL (0.00-0.30); Immature Granulocytes Pct Auto 0.2 %; Lymphocytes Absolute Auto 1.94 K/uL (0.90-2.90); Mean Corpuscular HGB Conc 31 gm/dL (32-36); Mean Corpuscular Hemoglobin 28 pg (26-34); Mean Corpuscular Volume 91 fL (80-100); Monocytes Percent Auto 8.2 % (0.0-11.0); Neutrophils Percent Auto 70.4 % (42.0-72.0); Platelet Count* 348 K/uL (140-440); RDW Coefficient of Variation % 17.2 % (11.5-15.5); Red Blood Count 5.03 m/uL (4.00-5.20); White Blood Count* 9.24 K/uL (4.50-11.00)
[2025-01-02 12:23] LABS: Slide Review Reflex No
== END 2025-01-02 11:07 | disposition home or self-care (01) ==
LOC: NPINS 11:08
PROVIDERS: Visit Provider Psychiatry & Neurology Psychiatry
DX: F25.9 Schizoaffective disorder, unspecified (principal); Z79.899 Other long term (current) drug therapy
CPT/HCPCS: 85025

== ENCOUNTER 2025-01-19 13:11 | Outpatient (CLI) | payer MEDICARE, OTHER, SELFPAY ==
[2025-01-19 14:02] LABS: Basophils Percent Auto 0.1 % (0.0-3.0); Hematocrit 41.8 % (33.0-51.0); Hemoglobin* 13.6 gm/dL (12.0-16.0); Immature Granulocytes Pct Auto 0.1 %; Lymphocytes Percent Auto 16.2 % (20-44); Mean Corpuscular HGB Conc 33 gm/dL (32-36); Mean Corpuscular Hemoglobin 29 pg (26-34); Mean Corpuscular Volume 89 fL (80-100); Monocytes Percent Auto 6.8 % (0.0-11.0); Neutrophils Percent Auto 76.8 % (42.0-72.0); Platelet Count* 356 K/uL (140-440); RDW Coefficient of Variation % 15.9 % (11.5-15.5); Red Blood Count 4.69 m/uL (4.00-5.20); White Blood Count* 15.25 K/uL (4.50-11.00)
[2025-01-19 14:20] LABS: Slide Review Reflex No
== END 2025-01-19 13:12 | disposition home or self-care (01) ==
LOC: NPINS 13:12
PROVIDERS: Visit Provider Psychiatry & Neurology Psychiatry
DX: Z79.899 Other long term (current) drug therapy (principal)
CPT/HCPCS: 85025

== ENCOUNTER 2025-03-14 14:24 | Outpatient (CLI) | payer MEDICARE, OTHER, SELFPAY ==
[2025-03-14 17:12] LABS: Hematocrit 45.1 % (33.0-51.0); Hemoglobin* 14.7 gm/dL (12.0-16.0); Immature Granulocytes Pct Auto 0.2 %; Lymphocytes Absolute Auto 2.30 K/uL (0.90-2.90); Mean Corpuscular HGB Conc 33 gm/dL (32-36); Mean Corpuscular Hemoglobin 30 pg (26-34); Mean Corpuscular Volume 93 fL (80-100); RDW Coefficient of Variation % 14.3 % (11.5-15.5); Red Blood Count 4.84 m/uL (4.00-5.20); White Blood Count* 12.28 K/uL (4.50-11.00)
[2025-03-14 17:18] LABS: Immature Granulocytes Abs Auto 0.00 K/uL (0.00-0.30); Slide Review Reflex No
== END 2025-03-14 14:25 | disposition home or self-care (01) ==
LOC: NPINS 14:25
PROVIDERS: Visit Provider Psychiatry & Neurology Psychiatry
DX: Z79.899 Other long term (current) drug therapy (principal)
CPT/HCPCS: 85025